=== PATIENT | female | born 1940 | race Caucasian/White ===

== ENCOUNTER 2019-08-09 18:04 | Inpatient (IN) ==
[2019-08-09 19:17] LABS: URINE SOURCE CLEAN CATCH
[2019-08-09 19:19] LABS: BASO# 0.03 X1000 (0.0-0.2); BASO% 0.4 % (0.0-0.8); EOS# 0.22 X1000 (0.0-0.7); EOS% 2.9 % (0.0-10.0); HEMATOCRIT 41.4 % (37.0-47.0); HEMOGLOBIN 13.3 g/dL (12.0-16.0); IMM GRAN# 0.02 X1000 (0.0-0.04); IMM GRAN% 0.3 % (0.0-0.5); LYMPH# 2.95 X1000 (1.2-3.4); LYMPH% 38.5 % (20.5-51.1); MCH 30.1 PG (27-31); MCHC 32.1 g/dL (33-37); MCV 93.7 FL (81-99); MONO# 0.52 X1000 (0.11-0.59); MONO% 6.8 % (1.7-9.3); MPV 10.8 FL (7.4-10.4); NEUT# 3.92 X1000 (1.4-6.5); NEUT% 51.1 % (42.2-75.2); PLT 229 X1000 (130-400); RBC 4.42 XMIL (4.2-5.4); RDW 14.7 % (11.5-14.5); WBC 7.66 X1000 (4.8-10.8)
--- NOTE | 2019-08-09 19:19 | Diag Imaging Result Doc PS360 ---
EXAM: CHEST-2 VIEWS 08/09/2019 HISTORY: blood pressure TECHNIQUE: PA and lateral chest COMMENT: There is no evidence of acute cardiac or pulmonary disease. Considering differences in technique there has been no significant change since 11/05/2017. IMPRESSION: Stable chest. Electronically signed by Jaylan Robertson 08/09/2019 7:17 PM
[2019-08-09 19:20] LABS: BILIRUBIN URINE NEGATIVE (NEGATIVE); BLOOD URINE NEGATIVE (NEGATIVE); COLOR YELLOW; GLUCOSE URINE NEGATIVE (NEGATIVE); KETONE URINE NEGATIVE (NEGATIVE); LEUKOCYTES URINE LARGE (NEGATIVE); NITRITE URINE NEGATIVE (NEGATIVE); PROTEIN URINE NEGATIVE (NEGATIVE); SP GRAVITY URINE 1.019; TURBIDITY URINE CLEAR (CLEAR); UROBILINOGEN URINE NORMAL (NORMAL)
[2019-08-09 19:21] LABS: UR EPITHELIAL CELLS <10 /HPF (<10); URINE BACTERIA 1+ /HPF; URINE RBC <10 /HPF (<10); URINE WBC 20-40 /HPF (<10)
[2019-08-09 19:34] LABS: INR 0.94; PROTIME 12.7 Seconds (11.0-16.0)
[2019-08-09 19:35] LABS: PTT 32.9 Seconds (22.3-41.8)
[2019-08-09 19:40] LABS: ALB/GLOB RATIO 1.6; ALBUMIN 4.2 g/dL (3.5-5.0); CALCIUM 9.8 mg/dL (8.8-10.2); POTASSIUM 3.5 mmol/L (3.5-5.1); TOTAL BILIRUBIN 0.39 mg/dL (0.20-1.00); TOTAL PROTEIN 6.9 g/dL (6.3-8.3)
--- NOTE | 2019-08-09 20:28 | EKG Report ---
Test Performed on : 08/09/2019 6:47:54 PM Test Reason : blood pressure Blood Pressure : / mmHG Vent. Rate : 068 BPM Atrial Rate : 068 BPM P-R Int : 164 ms QRS Dur : 080 ms QT Int : 406 ms P-R-T Axes : 045 012 -08 degrees QTc Int : 431 ms Normal sinus rhythm. Minimal voltage criteria for LVH, may be normal variant Nonspecific ST abnormality Abnormal ECG When compared with ECG of 03-SEP-2007 10:14, T wave inversion now evident in Inferior leads Unconfirmed Result
[2019-08-09] MEDS ORDERED: CATAPRES PO ONE (21:52)
[2019-08-09] MEDS ORDERED: TYLENOL ONE (23:26)
[2019-08-09] MEDS ORDERED: ROCEPHIN 1 GM in NS 50 ML IV ONE (23:44)
[2019-08-09] MEDS ORDERED: ASPIRIN PO ONE (23:44)
--- NOTE | 2019-08-09 23:46 | PROVIDER DOCUMENTATION ---
This chart was entered by Kasey Fuller Scribe, acting as scribe for Richy Delgado MD. HPI-General Adult - General Chief Complaint: B/P Problems Stated Complaint: HIGH BP Time Seen by Provider: 08/09/19 21:24 Source: patient Allergies/Adverse Reactions: Patient Allergies Allergy/AdvReac Type Severity Reaction Status Date / Time meloxicam [From Mobic] Allergy Unknown Verified 08/09/19 21:45 lisinopril AdvReac ANAPHYLAXIS Verified 08/09/19 21:45 Home Medications: Home Medication List Medication Instructions Recorded Confirmed Last Taken Type Acetaminophen/Diphenhydramine 1 each PO Q6-8H PRN PRN #20 tablet 11/14/16 Unknown Rx [Percogesic 325-12.5 mg Tablet] Amlodipine Besylate 2.5 mg PO DAILY 11/14/16 11/14/16 11/14/16 06:00 History Atenolol 50 mg PO DAILY 11/14/16 11/14/16 11/14/16 06:00 History Cyclobenzaprine [Flexeril] 10 mg PO TID #20 tablet 11/14/16 Unknown Rx Meloxicam [Mobic] 7.5 mg PO DAILY PRN PRN #15 tablet 11/14/16 Unknown Rx - History of Present Illness -Gen Adult Nature of Presenting Problems: pt is a 78 yr old female presenting with complaint of elevated BP today and 1 month complaint of forgetfulness/confusion. pt reports difficulty following con versations and forgetting simple things that she normally has no problems with. pt reports today when BP was elevated she called her monkey keeper doc who adivsed her to come be seen to r/o stroke. pt reports she has had no weakness, no chest pain, no shortness of breath or difficulty ambulating. pt admits frontal headaches Location of Pain/Injury: reports: none Pain Radiation: reports: no radiation Quality of Pain: reports: none Severity: reports: moderate Onset/Duration: reports: other (1 day HTN, 1 month forgetfullness) Timing: reports: still present Context/Activities at Onset: reports: light activity Modifying Factors: improves with: other medication (1 extra atenolol-no relief) Associated Symptoms: reports: headaches. denies: chest pain, dizziness, nausea, shortness of breath, vomiting Similar Symptoms Previously?: No Recently seen or treated by another doctor?: No Review of Systems - Adult - REVIEW OF SYSTEMS - ADULT Constitutional: denies: chills, fever, fatique Eyes: denies: blurred vision, double vision Ears, Nose, Mouth & Throat: denies: ear pain, sinus problem, throat pain Cardiovascular: denies: chest pain, palpitations, syncope Respiratory: denies: cough, shortness of breath Gastrointestinal: denies: abdominal pain, nausea, vomiting Genitourinary: reports: incontinence (hx of same, no change). denies: dysuria, frequency, flank pain Musculoskeletal: denies: back pain, muscle aches, muscle weakness Integumentary: reports: no symptoms reported Neurological: reports: headache/migraines, other (forgetfullness/confusion). denies: dizziness/vertigo, loss of balance, syncope Psychiatric: reports: anxiety Endocrine: reports: no symptoms reported Hematologic/Lymphatic: reports: no symptoms reported Allergic/Immunologic: reports: no symptoms reported All Other Systems: Reviewed and Negative Past History - Adult - PAST MEDICAL HISTORY-ADULT Review of Records: reports: Old Records Reviewed, Nursing Assessment Review, Medications Reviewed, Social history reviewed & non-contributory. Major Childhood Illnesses: reports: denies history Cardiovascular: reports: denies history Respiratory: reports: denies history Gastrointestinal: reports: denies history Obstetrical/Gynecological: reports: denies history Genitourinary: reports: denies history Musculoskeletal: reports: denies history Neurological: reports: denies history Endocrine/Immune: reports: denies history Other Conditions: reports: denies history - IMMUNIZATION STATUS Childhood Immunizations: See Nurse Assessment Flu Vaccine: See Nurse Assessment - FAMILY HISTORY Family History: reviewed, not pertinent - SOCIAL HISTORY Smoking: denies Substance Use: denies Living Situation: alone Physical Exam-General - PHYSICAL EXAM-ADULT Initial Vital Signs Reviewed: Yes - CONSTITUTIONAL General Appearance: appears well, alert, no apparent distress - EYES Eyes: PERRL/EOMI - HEAD, EARS, NOSE, MOUTH & THROAT HENMT: normocephalic/atraumatic, moist mucous membranes, normal ENT inspection - NECK Neck: non-tender, full range of motion, supple, normal inspection - RESPIRATORY Respiratory: chest non-tender, lungs clear, normal breath sounds, no respiratory distress, no accessory muscle use - CARDIOVASCULAR Cardiovascular: normal peripheral pulses, regular rate, rhythm, no edema - GASTROINTESTINAL (ABDOMEN) Abdominal Exam: normal bowel sounds, non tender, soft - LYMPHATIC Lymphatic: no adenopathy - MUSCULOSKELETAL Back Exam: normal inspection, no CVA tenderness, no vertebral tenderness Extremity: normal range of motion, non-tender, normal gait, normal inspection - SKIN Integumentary: normal color, normal turgor, warm/dry - NEUROLOGIC Neurologic: grossly normal, no motor/sensory deficits - PSYCHIATRIC Psych/Mental Status: normal mood/affect, normal thought content, normal thought process, oriented x 3 Progress - PLAN OF CARE/RESULTS Progress/Plan/Lab Results: Vital Signs - 8 hr 08/09/19 18:22 Temperature 98.1 F Pulse Rate 71 Respiratory Rate 18 Blood Pressure 191/71 O2 Sat by Pulse Oximetry 96 Laboratory Results - last 24 hr 08/09/19 08/09/19 08/09/19 18:55 18:55 18:55 WBC 7.66 RBC 4.42 Hgb 13.3 Hct 41.4 MCV 93.7 MCH 30.1 MCHC 32.1 L RDW Std Deviation 14.7 H Plt Count 229 MPV 10.8 H Immature Gran % (Auto) 0.3 Neut % (Auto) 51.1 Lymph % (Auto) 38.5 [place] % (Auto) 6.8 Eos % (Auto) 2.9 Baso % (Auto) 0.4 Immature Gran # (Auto) 0.02 Neut # (Auto) 3.92 Lymph # (Auto) 2.95 [place] # (Auto) 0.52 Eos # (Auto) 0.22 Baso # (Auto) 0.03 PT INR PTT (Actin FS) Sodium 142 Potassium 3.5 Chloride 105 Carbon Dioxide 25 Anion Gap 12 BUN 15 Creatinine 1.0 H Estimated GFR/1.73 m2 54 BUN/Creatinine Ratio 15 Glucose 124 H Calculated Osmolality 285 Calcium 9.8 Total Bilirubin 0.39 AST 17 ALT 14 Alkaline Phosphatase 78 Creatine Kinase 40 Troponin T High Sens Ifg-H-[id number] Pept 184 Total Protein 6.9 Albumin 4.2 Globulin 2.7 Albumin/Globulin Ratio 1.6 Urine Source Urine Color Urine Turbidity Urine pH Ur Specific [place] Urine Protein Ur Glucose (Stick) Ur Ketones (Stick) Urine Blood Urine Nitrite Urine Bilirubin Urobilinogen Dipstick Urine Leukocytes Urine WBC (Auto) Urine RBC (Auto) U Epithel Cells (Auto) Urine Bacteria (Auto) 08/09/19 08/09/19 08/09/19 18:55 18:55 19:00 WBC RBC Hgb Hct MCV MCH MCHC RDW Std Deviation Plt Count MPV Immature Gran % (Auto) Neut % (Auto) Lymph % (Auto) [place] % (Auto) Eos % (Auto) Baso % (Auto) Immature Gran # (Auto) Neut # (Auto) Lymph # (Auto) [place] # (Auto) Eos # (Auto) Baso # (Auto) PT 12.7 INR 0.94 PTT (Actin FS) 32.9 Sodium Potassium Chloride Carbon Dioxide Anion Gap BUN Creatinine Estimated GFR/1.73 m2 BUN/Creatinine Ratio Glucose Calculated Osmolality Calcium Total Bilirubin AST ALT Alkaline Phosphatase Creatine Kinase Troponin T High Sens 10 Nyd-Y-Kmwspawxxkg Pept Total Protein Albumin Globulin Albumin/Globulin Ratio Urine Source CLEAN CATCH Urine Color YELLOW Urine Turbidity CLEAR Urine pH 6.0 Ur Specific [place] 1.019 Urine Protein NEGATIVE Ur Glucose (Stick) NEGATIVE Ur Ketones (Stick) NEGATIVE Urine Blood NEGATIVE Urine Nitrite NEGATIVE Urine Bilirubin NEGATIVE Urobilinogen Dipstick NORMAL Urine Leukocytes LARGE A Urine WBC (Auto) 20-40 A Urine RBC (Auto) <10 U Epithel Cells (Auto) <10 Urine Bacteria (Auto) 1+ Orders Category Date Time Status Cardiac Monitoring DIRECTED Care 08/09/19 19:03 Active Oxygen Therapy- ED Nursing DIRECTED Care 08/09/19 19:03 Completed Saline Loc NOW Care 08/09/19 19:03 Active CHEST-2 VIEWS [RAD] Stat Exams 08/09/19 19:03 Completed CBC WITH ELECTRONIC DIFF [HEME] Stat Lab 08/09/19 18:55 Completed CK PROFILE [SP CHEM] Stat Lab 08/09/19 18:55 Completed COMPREHENSIVE METABOLIC PANEL [CHEM] Stat Lab 08/09/19 18:55 Completed PRO B-NATRIURETIC PEPTIDE Stat Lab 08/09/19 18:55 Completed PROTIME WITH INR [COAG] Stat Lab 08/09/19 18:55 Completed PTT [COAG] Stat Lab 08/09/19 18:55 Completed TROPONIN T HIGH SENSITIVITY Stat Lab 08/09/19 18:55 Completed URINALYSIS W/POSS RFLX CULT [URINALYSIS] Stat Lab 08/09/19 19:00 Completed URINE CULTURE [RM] Routine Lab 08/09/19 19:00 Received CP/SOB/Palp >45 yrs of Age Stat Oth 08/09/19 19:01 Ordered EKG [EKG] Stat Ther 08/09/19 19:03 Draft Result Diagrams: 08/09/19 18:55 08/09/19 18:55 - EKG 1 Time of EKG reading by physician:: 18:47 EKG Read and Signed by:: Shiraz Edwards EKG Interpretation (*Must complete 3 of following elements*): Abnormal (non spe cific ST abnormality) Rate: 68 Rhythm: nsr [place]: normal QRS: LVH (minimal voltage criteria) [place] Interval: normal - XRAY 1 XRAY Study: Chest Impression: Normal ( Signed EXAM: CHEST-2 VIEWS 08/09/2019 HISTORY: blood pressure TECHNIQUE: PA and lateral chest COMMENT: There is no evidence of acute cardiac or pulmonary disease. Considering differences in technique there has been no significant change since 11/05/2017. IMPRESSION: Stable chest. Electronically signed by Jaylan Robertson 08/09/2019 7:17 PM 08/09/191916 Interpreting Physician: Jaylan Robertson MD Dictated Date/Time: 08/09/191914 cc: Shiraz Edwards DO; Meghan Colin MD) - CT/MRI 1 CT Study: Head Impression: Abnormal (1. no acute intracranial process 2. nonspecific white matter changes likley sequela of remote small vessel disease 3. age indeterminate small infarct in left MCA territory) - CONSULTS/PCP/HOSPITALIST Notification #1 *Consult/PCP/Hospitalist*: Dr Lee Time Discussed: 00:01 Consult Disposition: Will see in ED, Admit Departure - Departure Date of Disposition Decision: 08/09/19 Time of Disposition Decision: 00:01 DIAGNOSIS: UTI (urinary tract infection), TIA (transient ischemic attack), Uncontrolled hypertension Disposition: ADMITTED INPATIENT 09 Certified Medical Emergency: Emergent Condition: Fair Referrals and Follow-Ups: Meghan Colin MD [Primary Care Provider] - - Critical Care Note This patient required my direct & personal management of CC.: No Attestation - Physician/ POLLO Attestation Patient care was provided by Advanced Practice Provider:: No The physician spent face to face time with patient:: Yes Advanced Practice Provider documentation review:: Supervising physician onsite and consulted in the evaluation and care of this patient. The physician did have a face to face encounter with the patient. This chart was documented by the indicated scribe, (Kasey Fuller, Treasure) and accurately reflects the services I performed and decisions made by Kar hussein Donald C., MD, as attested by the provider's signature.
[2019-08-10] MEDS ORDERED: ZOFRAN IV PRN (00:59)
[2019-08-10] MEDS ORDERED: TYLENOL PO PRN (00:59)
[2019-08-10] MEDS ORDERED: APRESOLINE IV PRN (01:54)
--- NOTE | 2019-08-10 03:35 | HISTORY AND PHYSICAL ---
PRIMARY CARE PROVIDER: Dr. Meghan Colin. CHIEF COMPLAINT: High blood pressure, possible stroke. HISTORY OF PRESENT ILLNESS: Ms Mccain is a 78-year-old female who carries a past medical history of hypertension. She reported since July 04 that she has been having issues with her thought process, forgetting bank account numbers. She gets easily upset when she cannot get her words out correctly. She is also able to describe like some type of procedure, but cannot name it. For instance, 1 example she gave me was embalming. She could tell me about the process, but not the name. She also forgot the name of the procedure that her friend had back in May to help out with his heart, which was a pacemaker. She has been mixing up her phone number with her social security and pin number, forgetting the names of various objects. Apparently, her issue with high blood pressure started today. She was having some 180s over 200s. She called her PCP to try to get an appointment this a.m. However, they advised her to come to the ED to be ruled out for stroke. Head CT showed an indeterminate age of a left MCA. No acute intracranial process. Nonspecific white matter changes, likely sequela of remote small-vessel disease. Laboratory data was essentially unremarkable. Urinalysis showed a urinary tract infection. She denied any urinary symptoms. She did report though since June she has had frontal as well as occipital headaches. She was under a great deal of stress back in May with her sick friend who is 92 at the bedside with her at this time, but no chest pain, no shortness of breath. She did not notice any slurred speech. No issues with swallowing. No numbness or tingling. No weakness in her extremities. Her main issue was with her memory and aphasia. PAST MEDICAL HISTORY: Hypertension. PAST SURGICAL HISTORY: Tonsillectomy, cholecystectomy, hysterectomy, appendectomy, bilateral lumpectomy, cystocele, polypectomy, right and left eye lens implant. SOCIAL HISTORY: She was before with 2 children. She now has a friend who is with her at the bedside of 9 years. She is an ex-smoker. She quit back in 1997. No alcohol or illicit drug use. FAMILY HISTORY: Brother of heart disease. Mother and father both of [place] at the age of 75. Grandparents with diabetes on both sides of the family and a niece with breast cancer. REVIEW OF SYSTEMS: Twelve-point review of systems completely negative except for those mentioned in HPI. ALLERGIES: Mobic, unknown reaction. Lisinopril, anaphylaxis. MEDICATIONS: Home medications are being compiled. PHYSICAL EXAMINATION: VITAL SIGNS: Most recent from 18:22, temperature 98.1 degrees, heart rate 71, respirations 18, blood pressure 191/71, O2 is 96% on room air. GENERAL: Ms. Mccain is a pleasant 78-year-old female who is sitting on the stretcher in no acute distress. HEENT: Atraumatic, normocephalic. PERRL. NECK: Supple. Trachea midline. CARDIOVASCULAR: S1, S2 appreciated. No murmurs, gallops, or rubs noted. No lower extremity edema. No JVD. Could not appreciate any carotid bruits. LUNGS: Sounds clear bilaterally. GASTROINTESTINAL: Soft, nontender, nondistended. Positive bowel sounds 4 quadrants. EXTREMITIES: Patient moved all extremities with equal strength. Did not notice any deficits. NEUROLOGIC: She is awake. She is alert. She is oriented x4. She follows commands. Moves all extremities. However, it does take her a minute to process what you are saying to her at times, but not all the time. She will ask you to repeat what she said. She has been getting her bank accounts, phone numbers and social security numbers mixed up. She gets upset easily. She forgets the names of objects or she is able to explain a process but cannot tell you the name of it, like she explained embalming to me but could not think of the word embalming. IMAGING: Head CT per ED report shows a small indeterminate aged left MCA. Chest x-ray was stable. EKG showed a normal sinus rhythm with a nonspecific ST abnormality with T-wave inversions in inferior leads. LABORATORY DATA: White count 7, hemoglobin and hematocrit 13 and 41, platelet count is 229,000. Sodium 142, potassium 3.5, BUN 15, creatinine 1.0, blood glucose is 124. Troponin was 10. ProBNP 194. Urinalysis showed 1+ bacteria, 20 to 40 WBCs, large leukocytes, negative for nitrites. ASSESSMENT AND PLAN: 1. 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 The patient will be admitted and will undergo a full neurological workup. We will check an MRI, MRA, echocardiogram, carotid Dopplers, lipid profile this morning. Consult Neurology. Continue to follow the stroke protocol. We will get adoption social worker, PT, Speech Therapy, Occupational Therapy to work with the patient. Start her on a statin. Continue on full-dose aspirin. 2. Hypertension. We will continue her home medications when reconciled. For now, we will provide her with some p.r.n. Apresoline with parameters. 3. Urinary tract infection. She has been treated with Rocephin. We will continue that and await her urine culture. However, she is currently denying any urinary symptoms. 4. Further recommendations to follow physician evaluation, laboratory and diagnostic data. Dictated by PATRICK Olivas for Aric Lee MD cc: MD Meghan Travis MD Eston G. Norwood III, MD
--- NOTE | 2019-08-10 07:35 | Diag Imaging Result Doc PS360 ---
EXAM: CT HEAD W/O CONTRAST INDICATION: confusion, headache TECHNIQUE: This exam was performed using automated exposure control, adjustment of mA or kV according to patient size, and/or use of iterative reconstruction technique. COMPARISON: None. FINDINGS: There is extensive patchy low attenuation in the periventricular and subcortical white matter suggesting advanced microangiopathy. There is focal left temporal lobe encephalomalacia. There is no definite acute infarct given the limited sensitivity of CT versus MRI. There is no discrete intracranial mass, mass effect, or intracranial hemorrhage. The surrounding soft tissues and bony structures are essentially unremarkable. IMPRESSION: Extensive chronic appearing white matter changes as well as left temporal lobe focal encephalomalacia. No definite acute intracranial pathology by CT. Electronically signed by Saeid Blanchard 08/10/2019 7:33 AM
[2019-08-10] MEDS: ASPIRIN PO SCH ×3 (09:00→16:53)
[2019-08-10] MEDS: FLEXERIL PO SCH ×2 (13:00→17:07)
--- NOTE | 2019-08-10 13:27 | ECHO REPORT ---
ORDER DATE: 08/10/2019 INTERPRETING PHYSICIAN: Joni Lui MD ECHOCARDIOGRAPHIC MEASUREMENTS: 1. Interventricular septum 1.3. 2. Left ventricular posterior wall 1.5. 3. Diastolic diameter 3.9. 4. Left atrium 4.4. 5. Aorta 2.8 cm. SUMMARY OF 2-DIMENSIONAL IMAGIN. There is left atrial enlargement. 2. Aortic valve leaflets are trileaflet. 3. Mitral valve was normal. 4. Tricuspid valve was normal. 5. Pulmonic valve was normal. There is mild tricuspid regurgitation. Peak velocity across the tricuspid valve was 2.6 m/sec. 6. Pulmonary artery systolic pressure of 27 mmHg. 7. There is mild mitral regurgitation. 8. There is grade 2 diastolic dysfunction. 9. Peak velocity across the aortic valve less than 2 m/sec. There is no aortic stenosis or regurgitation. 10. Normal left ventricular cavity size. Concentric left ventricular hypertrophy. Estimated ejection fraction of 60 to 65 percent. 11. Normal right ventricular cavity size and function. 12. There is no pericardial effusion or obvious intracardiac mass or thrombus seen. cc: Joni Lui MD
--- NOTE | 2019-08-10 14:21 | Diag Imaging Result Doc PS360 ---
MRI BRAIN W/WO CONTRAST - 08/10/2019 INDICATION: stroke COMPARISON: Head CT 08/09/2019 FINDINGS: There is no area of restricted diffusion. There is significant periventricular cerebral white matter hyperintensity compatible with advanced chronic microvascular ischemia. There is no area of hyperintensity with overlying laminar cortical necrosis and some enhancement at the posterior left temporal lobe. This is in the area of hypodensity on the prior CT. This indicates a late subacute infarction, greater than about 7-10 days old. No mass effect. No evidence of intracranial hemorrhage. No other abnormal contrast enhancement. IMPRESSION: 1. Late subacute cerebral infarction at the posterior left temporal lobe. 2. Advanced cerebral white matter chronic microvascular ischemia. Electronically signed by Chai Stanley 08/10/2019 2:19 PM
--- NOTE | 2019-08-10 14:23 | Diag Imaging Result Doc PS360 ---
MRA BRAIN W/O CONTRAST - 08/10/2019 INDICATION: stroke TECHNIQUE: Noncontrast time of flight technique was used COMPARISON: None FINDINGS: The intracranial vessels are all normal in size and contour. There is no significant stenosis or vascular disease. No aneurysmal dilation. IMPRESSION: No macrovascular intracranial arterial disease. Electronically signed by Chai Stanley 08/10/2019 2:21 PM
--- NOTE | 2019-08-10 15:18 | NEUROLOGY CONSULTATION ---
DATE: 08/10/2019 Ms. Mccain is 78 years old and neurology consult is requested in regards to imaging evidence of left hemisphere lucency and subjective forgetfulness. History from the patient is that she has never had a stroke. She reports noticing, approximately a month ago, that she seemed to have trouble remembering things. She is able today to provide several specific examples such as when she forgot a PIN at her bank and had a delay in obtaining cee. She recalls being very worried about a close friend's health and sometimes having trouble remembering precisely the name of procedure the friend had. She occasionally has had trouble remembering her phone number. She reports no truly serious incident caused by her forgetting. There is not history of serious head injury, previous stroke, seizure, ethanol abuse, illicit drug use. She has not had any other [employer] event. She is bothered by headache, mostly bifrontal and temporal pressure and throbbing, lasting for hours at a time. She has had some elevated blood pressures. [employer] reports systolic blood pressure 225 on one occasion and some others around 200. In retrospect, she believes headache has been worse over the time that blood pressure has been more elevated. On this admission, initial systolic blood pressure was recorded 191. Blood pressures have been 120s-160s over the last 8 hours. She is afebrile. Heart rate has ranged 60s-80s. Past history is remarkable for hypertension, back pain, joint pain. There is family history of dementia in paternal grandfather. A few siblings have had cognitive evaluation but no diagnosis. Noncontrast CT on admission showed left MCA territory lucency. Brain MRI is scheduled. On exam, she is awake, alert, attentive. She is hard of hearing but communicates very well when she has her hearing aid in place. Speech is not dysarthric. Language function is intact on careful bedside testing of repeating, naming, comprehension, fluency. I did not test reading or handwriting. Calculation is good. Recent and remote memory are good. She scored 29 of 30 on bedside cognitive testing. She made the usual careless error spelling "world" backward and otherwise answered all questions correctly. She registered 3 items and then recalled the 3 items at 10 minutes. She interpreted a simile and a metaphor correctly. She named the President and discussed recent news. She was completely oriented to all parameters. Head and neck are unremarkable. There is no meningismus. Extraocular movements are full. Visual grey are full tested by confrontational finger counting in each quadrant. Facial motility is symmetric. Facial sensation is intact to pinprick and light touch testing. Gag is intact. Tongue is midline. Shoulder shrug is equal. Strength is normal in the arms and legs. She did well on aspipm-hu-swhm testing bilaterally. She reports good sensation over the hands and feet. Proprioception is good at the great toe MTP joint bilaterally. Reflexes are absent at the ankles and 1+ symmetrically at the wrists. I did not test her gait. IMPRESSION: 1. CT evidence of left hemisphere lucency. This appears to be very old. Statistically, this would most likely be old cerebral infarction but lucency following resolution of hemorrhage, contusion, infection is not excluded. Regardless of the initial etiology, this appears quite old and probably not explanation for recent difficulty. MRI will be reassuring. 2. Subjective forgetfulness. She reports a good bit of personal stress and also has had significant blood pressure elevations. If forgetfulness persists with blood pressure controlled, we can consider further cognitive evaluation and she might eventually be a candidate for cholinesterase inhibitor trial. At this point, based on her performance on bedside testing, I do not think we will need to do anything further. I do not have any urgent suggestion. Further plans will depend on the MRI report. Thanks for asking Neurology to see Ms. Mccain. cc: MD JUAN CARLOS Menard III
[2019-08-10] MEDS ORDERED: LIPITOR PO SCH (21:00)
[2019-08-10] MEDS ORDERED: ROCEPHIN 1 GM in NS 50 ML IV SCH (23:00)
[2019-08-11 07:27] LABS: BASO# 0.02 X1000 (0.0-0.2); BASO% 0.2 % (0.0-0.8); EOS% 2.5 % (0.0-10.0); HEMATOCRIT 41.4 % (37.0-47.0); HEMOGLOBIN 12.8 g/dL (12.0-16.0); IMM GRAN# 0.02 X1000 (0.0-0.04); IMM GRAN% 0.2 % (0.0-0.5); LYMPH# 1.94 X1000 (1.2-3.4); LYMPH% 24.2 % (20.5-51.1); MCH 29.4 PG (27-31); MCHC 30.9 g/dL (33-37); MCV 95.2 FL (81-99); MONO# 0.49 X1000 (0.11-0.59); MONO% 6.1 % (1.7-9.3); MPV 10.4 FL (7.4-10.4); NEUT# 5.35 X1000 (1.4-6.5); NEUT% 66.8 % (42.2-75.2); PLT 188 X1000 (130-400); RBC 4.35 XMIL (4.2-5.4); RDW 14.7 % (11.5-14.5); WBC 8.02 X1000 (4.8-10.8)
[2019-08-11 07:59] LABS: AGAP 10; ALB/GLOB RATIO 1.7; ALBUMIN 3.8 g/dL (3.5-5.0); ALKALINE PHOSPHATASE 64 U/L (32-104); BUN 17 mg/dL (8-22); CALCIUM 8.8 mg/dL (8.8-10.2); CHLORIDE 106 mmol/L (98-107); COSMO 285; CREATININE 0.9 mg/dL (0.5-0.9); ESTIMATED GFR > 60; GLUCOSE 98 mg/dL (70-104); GOT 15 U/L (10-30); GPT 10 U/L (10-36); POTASSIUM 3.7 mmol/L (3.5-5.1); SODIUM 142 mmol/L (136-145); TCO2 26 mmol/L (25-35); TOTAL BILIRUBIN 0.48 mg/dL (0.20-1.00); TOTAL PROTEIN 6.1 g/dL (6.3-8.3)
[2019-08-11 08:11] VITALS: BP 136/64
[2019-08-11] MEDS: FLEXERIL PO SCH (09:00)
[2019-08-11] MEDS: ASPIRIN PO SCH (09:00)
--- NOTE | 2019-08-11 09:17 | Carotid Study ---
DATE: 08/10/2019 REQUESTING PROVIDER: Matias. CIRCULATION SUPERVISOR: Trung. INDICATIONS: Syncope. EQUIPMENT: [employer] Vivid E9 ultrasound system with a 9 L-D transducer. FINDINGS: A complete diagram of ultrasound images can be seen scanned in the patient's medical record. The peak systolic velocity noted on the right side is in the proximal internal carotid artery and is noted to be 117. The peak systolic velocity noted on the left side is noted to be in the proximal internal carotid artery and is noted to be 85. The calculated internal common ratio on the right is 1.05 and on the left 1.21. Calculated stenosis on the right 40 to 59 percent, left 0 to 39 percent. Both vertebral arteries are antegrade flow. INTERPRETATION: There is some atherosclerosis producing a moderate stenosis on the right of 40 to 59 percent, likely closer to the 40 percent range. The left side is normal to mild but does also have some atherosclerosis visualized. Moderate stenosis on the right of 40 to 59 percent, mild stenosis on the left of 0 to 39 percent. I recommend continue monitoring. cc: Renato Winters MD
--- NOTE | 2019-08-11 09:25 | DISCHARGE SUMMARY ---
ADMISSION DATE: 08/10/2019 DISCHARGE DATE: 08/11/2019 DISCHARGE DIAGNOSES: 1. Subjective forgetfulness. 2. Transient ischemic attack. 3. 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 4. Hypertension. 5. Urinary tract infection ruled out. CONSULTATIONS: Dr. Jurado from Neurology. PROCEDURES: 1. Brain MRI showed: A.Late subacute cerebral infarction at the posterior temporal lobe. B.Advanced cerebral white matter chronic microvascular ischemia. 2. Brain MRI showed no microvascular intracranial arterial disease. 3. Head CT showed extensive chronic appearing white matter changes as well as left temporal lobe focal encephalomalacia but no definite acute intracranial pathology by CT. 4. Echocardiogram showed ejection fraction of 60% to 65% with normal right ventricular cavity size and function. No pericardial effusion. Concentric left ventricular hypertrophy but normal left ventricular cavity size. HOSPITAL COURSE: In brief, this is a 78-year-old female who has past medical history of hypertension, who presented to the emergency department complaining of problems with her speech. Her blood pressure has been high. She was seen in the emergency department, and they found what apparently looks like an old stroke. MRI did not confirm any new stroke, just no diffusion restriction noted on the MRI. The patient reported that her speech is completely normal. She has problem forgetting a word, and she gets frustrated for that. At this point, the is stable. She reports no urinary complaints, and with a urine culture that is mixed inlda, I will not provide any antibiotics for her. The patient is going to be discharged in stable condition. DISCHARGE PHYSICAL EXAMINATION: VITAL SIGNS: Temperature is 98.4, heart rate 68, respiratory rate 17, blood pressure 114/55, O2 saturation is 96% on room air. GENERAL: This is a 78-year-old female lying in bed in no acute distress. CARDIOVASCULAR: S1 and S2 heard. No murmurs, rubs or gallops. Regular rate and rhythm. RESPIRATORY: Clear bilaterally to auscultation. No work of breathing or using accessory muscles. ABDOMEN: Soft, nontender, nondistended. Bowel sounds present. No organomegaly. EXTREMITIES: No cyanosis, clubbing or edema. Peripheral pulses present in both legs. NEUROLOGICAL: The patient is alert and oriented x3. Moves all 4 extremities. DISCHARGE DISPOSITION: Home with home health. FOLLOWUP: Follow up with Dr. Jurado in 2 to 4 weeks for memory problems. DISCHARGE MEDICATIONS: 1. Atorvastatin 40 mg p.o. at bedtime. 2. Aspirin 325 mg p.o. at bedtime. 3. Amlodipine 2.5 mg 1 tablet p.o. daily. 4. Atenolol 50 mg 1 tablet p.o. daily. 5. Cyclobenzaprine 10 mg 1 tablet p.o. 3 times per day. 6. Meloxicam 7.5 mg 1 tablet p.o. as needed for pain. cc: Clyde Romero MD
== END 2019-08-11 10:08 | disposition home health service (06) | DRG 69 ==
LOC: ED 18:04 → SUATTDRO 08-10 00:45 → EDIPHOLD 08-10 00:45 → 3N 08-10 16:48
PROVIDERS: ATTEND Internal Medicine